=== PATIENT | male | born 1970 | race Caucasian/White ===

== ENCOUNTER 2023-04-24 21:51 | Emergency (ER) | payer OTHER ==
[~2023-04-24] VITALS: Ht 175.3 cm; Wt 79.4 kg
[2023-04-24 22:13] VITALS: BP 113/71; PULSE 69; RESP 16; TEMP 97.8; O2SAT 100
[2023-04-25] MEDS ORDERED: MORPHINE SULFATE 4 MG/ML SYR IM ONE (00:30)
[2023-04-25 01:42] VITALS: BP 123/76; PULSE 76; RESP 16; O2SAT 100
== END 2023-04-25 05:41 | disposition home or self-care (01) ==
LOC: MED 21:51
DX: S76.012A Strain of muscle, fascia and tendon of left hip, initial encounter (principal); S86.812A Strain of other muscle(s) and tendon(s) at lower leg level, left leg, initial encounter; S16.1XXA Strain of muscle, fascia and tendon at neck level, initial encounter; V49.88XA Car occupant (driver) (passenger) injured in other specified transport accidents, initial encounter; Y93.89 Activity, other specified; Y92.89 Other specified places as the place of occurrence of the external cause; Y99.8 Other external cause status
CPT/HCPCS: 70450; 71045; 72125; 72170; 96372; 99285; J2270